=== PATIENT | male | born 1965 | race Asian ===

== ENCOUNTER 2019-12-09 00:55 | Emergency (ER) | payer SELFPAY ==
[~2019-12-09] VITALS: Ht 177.8 cm; Wt 68.0 kg
--- NOTE | 2019-12-09 01:20 | NUR ---
Dr. Hunt at bedside for MSE.
--- NOTE | 2019-12-09 01:33 | NUR ---
Patient discharged to home in stable conditon. Written and verbal after care instructions given. Patient verbalizes understanding of instructions. Pt ambulated out of ER with steady gait, no acute signs of distress, VSS, all belongings taken.
[2019-12-09 01:34] VITALS: BP 133/82
== END 2019-12-09 01:34 | disposition home or self-care (01) ==
LOC: ER 00:58
DX: K08.89 Other specified disorders of teeth and supporting structures (principal)
CPT/HCPCS: A4663

== ENCOUNTER 2020-01-21 10:11 | Emergency (ER) | payer SELFPAY ==
[~2020-01-21] VITALS: Ht 177.8 cm; Wt 68.0 kg
--- NOTE | 2020-01-21 10:33 | NUR ---
Dr John at the bedside for MSE.
[2020-01-21 10:49] VITALS: BP 142/80
--- NOTE | 2020-01-21 10:49 | NUR ---
Patient discharged to home in stable conditon. Written and verbal after care instructions given. Patient verbalizes understanding of instructions.
== END 2020-01-21 10:50 | disposition home or self-care (01) ==
LOC: ER 10:11
DX: J40 Bronchitis, not specified as acute or chronic (principal); F17.200 Nicotine dependence, unspecified, uncomplicated
CPT/HCPCS: A4663